=== PATIENT | male | born 1990 | race Caucasian/White ===

== ENCOUNTER 2018-10-02 17:29 | Emergency (ER) | payer SELFPAY ==
[~2018-10-02 17:29] MED LIST: Sodium Chloride 0.9% 1,000 ML BAG ONE
[2018-10-02] MEDS ORDERED: Acetaminophen 500 MG TAB ONE (18:24)
[2018-10-02 18:29] LABS: ALT (SGPT) 30 U/L (8-55); AST (SGOT) 17 U/L (5-34); Albumin 4.6 g/dL (3.5-5.0); Alkaline Phosphatase 70 U/L (40-150); Anion Gap 14 mmol/L (10-20); BUN (Urea Nitrogen) 10 mg/dL (8.9-20.6); CK (CPK) 295 U/L (30-200); Calc. Creatinine Clearance 0 mL/min (70-130); Calcium 9.2 mg/dL (7.8-10.44); Carbon Dioxide 25 mmol/L (22-29); Chloride 102 mmol/L (98-107); Estimated GFR-MDRD Greater than 90; Globulin 2.8 g/dL (2.4-3.5); Glucose 100 mg/dL (70-105); Magnesium 2.3 mg/dL (1.6-2.6); Potassium 3.7 mmol/L (3.5-5.1); Protein, Total 7.4 g/dL (6.0-8.3); Sodium 137 mmol/L (136-145)
[2018-10-02 18:35] LABS: Band 1 % (5-11); Eosinophils 1 % (0-10); Hemoglobin 15.6 g/dL (14.0-18.0); Lymphocytes 12 % (21-51); MDiff Complete? YES; Mean Corpuscular HGB CONC 32.8 g/dL (32.0-36.0); Mean Corpuscular Hemoglobin 28.8 pg (27.0-31.0); Mean Corpuscular Volume 87.9 fL (78.0-98.0); Mean Platelet Volume 6.8 fL (7.4-10.4); Monocytes 4 % (0-10); Neutrophil 78 % (42-75); Platelet Count 249 thou/uL (130-400); Platelet Morphology Comment Appears Adequate; RBC Distribution Width 11.8 % (11.5-14.5); RBC Morphology Normal; Reactive Lymphocytes 4 % (0-10); Red Blood Cell (RBC) Count 5.41 mill/uL (4.70-6.10); White Blood Cell (WBC) Count 8.8 thou/uL (4.8-10.8)
[2018-10-02 18:59] LABS: Bilirubin Negative (Negative); Blood, Urine Trace (Negative); Clarity Clear (Clear); Glucose, Urine (Dipstick) Negative (Negative); Leukocyte Trace (Negative); Nitrite Negative (Negative); Protein, Urine (Dipstick) Negative (Neg-Trace)
[2018-10-02 19:05] LABS: RBC/HPF 0-3 HPF (0-3); Squamous Epithelial 0-3 HPF (0-3)
[2018-10-02 19:06] LABS: Bacteria/HPF Rare-Few HPF (None Seen)
--- NOTE | 2018-10-02 19:08 | RAD ---
PA AND LATERAL VIEWS CHEST: 10/02/18 HISTORY: Fever and hypoxia. FINDINGS: The heart size is normal. No focal areas of consolidation, pneumothoraces or pleural effusions are se en. No acute osseous abnormalities are identified. IMPRESSION: No acute process. POS: [facility]
[2018-10-02] MEDS ORDERED: Sodium Chloride 0.9% 1,000 ML ONE (20:36)
== END 2018-10-02 21:56 | disposition home or self-care (01) ==
LOC: MADERS 17:29
DX: T67.5XXA Heat exhaustion, unspecified, initial encounter (principal); F17.220 Nicotine dependence, chewing tobacco, uncomplicated
CPT/HCPCS: 71046; 80053; 81003; 81015; 82550; 83605; 83690; 83735; 85025; 96360; 96361; J7050

== ENCOUNTER 2019-07-29 21:05 | Emergency (ER) | payer SELFPAY ==
[2019-07-29] MEDS ORDERED: HYDROcodone/Acetaminophen 5/325 mg Tablet ONE ×2 (21:41)
[2019-07-29] MEDS ORDERED: Ketorolac Tromethamine 60 MG/2 ML VIAL ONE (21:41)
--- NOTE | 2019-07-29 22:20 | RAD ---
LEFT ANKLE 3 VIEWS: Date: 07/29/2019 HISTORY: Trauma. COMPARISON: None. FINDINGS: There is a distal fibular fracture with the tubular tip posteriorly displaced. The lateral radiograph is insufficient although there is a joint depression type fracture of the calcaneus. Likely a small avulsion off the navicular. IMPRESSION: 1. Inadequate lateral radiograph, likely depression-type fracture of the calcaneus as well as a retr acted distal fibular fracture below the syndesmosis. 2. Osseous avulsion of medial margin of the navicular. POS: [facility]
[2019-07-29] MEDS ORDERED: Fentanyl 100 MCG/2 ML VIAL ONE (23:13)
== END 2019-07-29 23:17 | disposition short-term general hospital (02) ==
LOC: MADERS 21:05
DX: S92.002A Unspecified fracture of left calcaneus, initial encounter for closed fracture (principal); S92.252A Displaced fracture of navicular [scaphoid] of left foot, initial encounter for closed fracture; S82.832A Other fracture of upper and lower end of left fibula, initial encounter for closed fracture; G62.9 Polyneuropathy, unspecified; F17.220 Nicotine dependence, chewing tobacco, uncomplicated; W22.8XXA Striking against or struck by other objects, initial encounter
CPT/HCPCS: 96372; 96374; J1885; J3010